=== PATIENT | male | born 1965 | race Caucasian/White ===

== ENCOUNTER 2018-03-01 05:39 | Inpatient (IN) | payer OTHER ==
[~2018-03-01] VITALS: Ht 188 cm; Wt 104.3 kg
[2018-03-01] MEDS ORDERED: oxyCODONE HCL SR 10MG TAB.SR.12H PO ONE (05:40)
[2018-03-01] MEDS ORDERED: ACETAMINOPHEN ES 500 MG TABLET ONE (05:40)
[2018-03-01] MEDS ORDERED: METOCLOPRAMIDE HCL 10 MG/2 ML VIAL ONE (05:40)
[2018-03-01] MEDS ORDERED: CELECOXIB 100 MG CAPSULE ONE (05:40)
[2018-03-01] MEDS ORDERED: BUPIVACAINE 0.75% DEXT-PF 2 ML AMPUL ONE (06:39)
[2018-03-01] MEDS ORDERED: BACITRACIN 50000 UNITS/VIAL ONE (06:40)
[2018-03-01] MEDS ORDERED: ANESTHESIA TRAY IN PYXIS 1 EA TRAY MC ONE (06:40)
[2018-03-01] MEDS ORDERED: BUPIVACAINE MPF 0.75% 30 ML VIAL ONE ×2 (06:40→06:57)
[2018-03-01] MEDS ORDERED: KETOROLAC TROMETHAMINE INJ 30 MG/ML VIAL ONE ×2 (06:40→10:21)
[2018-03-01] MEDS ORDERED: EPINEPHRINE (1:1000) 1 MG/ML AMPUL ONE (06:51)
[2018-03-01] MEDS ORDERED: MIDAZOLAM HCL 2 MG/2ML VIAL ONE (06:57)
[2018-03-01] MEDS ORDERED: HYDROMORPHONE INJ 2 MG/ML DISP.SYRIN ONE (06:57)
[2018-03-01] MEDS ORDERED: TRANEXAMIC ACID 1,500 MG in IV NS 0.9% 50 ML IV ONE (07:30)
[2018-03-01] MEDS ORDERED: MORPHINE SULFATE INJ 4 MG/ML DISP.SYRIN ONE (07:40)
[2018-03-01] MEDS ORDERED: KETOROLAC TROMETHAMINE INJ 30 MG/ML VIAL IV SCH (10:29)
[2018-03-01] MEDS ORDERED: CELECOXIB 100 MG CAPSULE PO SCH (10:29)
[2018-03-01] MEDS ORDERED: ONDANSETRON HCL/PF 4 MG/2 ML VIAL IVP PRN (10:30)
[2018-03-01] MEDS ORDERED: HYDROCODONE/APAP 5/325MG 1 EACH TABLET PO PRN (10:30)
[2018-03-01] MEDS ORDERED: ASPIRIN 600 MG/SUPP.RECT RC ONE (10:30)
[2018-03-01] MEDS ORDERED: oxyCODONE IR immediate release 5 MG ONE (10:30)
[2018-03-01] MEDS ORDERED: HYDROCODONE/APAP 5/325MG 1 EACH TABLET PO SCH (10:38)
[2018-03-01 10:55] VITALS: BP 118/67
--- NOTE | 2018-03-01 10:55 | NUR ---
RN NOTES PATIENT RECEIVED FROM OR, A/O X3 DX OF TOTAL LEFT KNEE REPLACEMENT WITH BRACE ON, GET VERBAL RESEARCH NURSE REPORT ADMINISTERED AM MEDICATION BUT FORGET TO SCAN IT, RN ALSO FAXED MD ORDER TO THE PHARMACY. V/S TAKEN BP- 118/67, R-18, T-98.0, O2- 2L NC, P-79. PATIENT REFUSED PAIN AT THIS TIME. F/C DRAIN LIGHT YELLOW OUTPUT. IN ACCESS INTACT. MD ORDERS TAKEN AND CARRIED OUT. APPLIED ICE ON LEFT LEG, KEEP FOOTS UP USING PILLOWS. CALL LIGHT WITHIN TO REACH, SAFETY PRECAUTION MAINTAINED ALL THE TIME.
[2018-03-01] MEDS ORDERED: DOCUSATE SODIUM 100 MG CAPSULE PO PRN (11:00)
[2018-03-01] MEDS ORDERED: BISACODYL SUPP (10 MG) 10 MG/SUPP.RECT SUPP.RECT RC PRN (11:00)
[2018-03-01] MEDS ORDERED: HYDROMORPHONE 1 MG/1 ML DISP.SYRIN IV PRN (11:00)
[2018-03-01] MEDS ORDERED: ZOLPIDEM TARTRATE 5 MG TABLET PO PRN (11:00)
[2018-03-01 11:30] VITALS: BP 119/95
[2018-03-01] MEDS ORDERED: MAGNESIUM HYDROXIDE 30 ML UDC PO PRN (11:30)
[2018-03-01] MEDS ORDERED: HYDROMORPHONE MDV 2 MG/ML VIAL IV PRN (11:30)
[2018-03-01 12:00] VITALS: BP 113/85
[2018-03-01] MEDS: HYDROMORPHONE INJ 2 MG/ML DISP.SYRIN IV PRN ×2 (13:09→20:29)
[2018-03-01] MEDS: ONDANSETRON HCL/PF 4 MG/2 ML VIAL IVP SCH ×3 (13:09→16:53)
--- NOTE | 2018-03-01 13:09 | NUR ---
RN NOTES ADMINISTERED DILAUDID 1 MG /ML IV PUSH PER PATIENT REQUEST FOR PAIN LEFT KNEE PAIN LEVEL 8/10, ALSO ADMINISTERED ZOFRAIN 4 MG/ML IV PUSH FOR NAUSEA, V/S TAKEN BP 121/ 80, P-83, CONTINUED MONITORING. ENCOURAGED PATIENT TO TAKE A DEEP BREATH, CHECKED CIRCULATION,, MOTION, AND SENSATION Q2 HR X3 PRESCRIBED, CALL LIGHT WITHIN TO REACH, SAFETY PRECAUTION MAINTAINED ALL THE TIME. ASSIST TURN AND REPOSITION Q 2 HR.
[2018-03-01] MEDS: IV D5/0.45 NACL 1,000 ML IV PRN (13:23)
--- NOTE | 2018-03-01 15:00 | NUR ---
RN NOTES PATIENT STABLE, SCHEDULED MEDICATION ADMINISTERED, V/S STABLE CHECKED CIRCULATION, MOTION, AND SENSATION Q 2 HR PRESCRIBED, CALL LIGHT WITHIN TO REACH, ASSIST TURN AND REPOSTION Q 2 HR. INFUSING D5 0.45 NS AT 75 ML/HR INTACT, CONTINUED MONITORING.
[2018-03-01] MEDS: HYDROCODONE/APAP 5/325MG 1 EACH TABLET PO SCH ×3 (15:35→23:00)
[2018-03-01] MEDS: ANCEF 1 GM/50 ML D5W IV SCH ×4 (15:35→23:22)
[2018-03-01 16:00] VITALS: BP 130/74
[2018-03-01] MEDS: CELECOXIB 100 MG CAPSULE PO SCH (17:20)
[2018-03-01] MEDS: KETOROLAC TROMETHAMINE INJ 30 MG/ML VIAL IV SCH ×2 (17:27→23:23)
[2018-03-01] MEDS ORDERED: oxyCODONE/APAP (5/325 MG) 1 UDTAB TABLET PO PRN (18:30)
[2018-03-01] MEDS ORDERED: ONDANSETRON HCL/PF 4 MG/2 ML VIAL IV PRN (18:30)
--- NOTE | 2018-03-01 18:37 | NUR ---
RN NOTES PATIENT SEEN BY OT PATIENT GET OUT OF BED. SCHEDULED MEDICATION ADMINISTERED, V/S STABLE, PATIENT TOLERATED DINNER WELL, NO C/O N/V AT THIS TIME. F/C DRAIN LIGHT YELLOW OUTPUT. MEDICATION WERE ADMINISTERED FOR PAIN EFFECTIVE. CALL LIGHT WITHIN TO REACH, NEXT TO THE BED, CONTINUED MONITORING. ENDORSED ONCOMING NURSE FOR PLAN OF CARE.
--- NOTE | 2018-03-01 19:30 | NUR ---
MS RN OPENING NOTES PATIENT RECEIVED RESTING IN BED, A/O X 4 WITH DX OF TOTAL LEFT KNEE REPLACEMENT. NO SOB, NO ACUTE DISTRESS NOTED. ON O2 2 LPM, BUT DOES NOT WANT TO USE IT, STATED HE IS BREATHING FINE & SATTING 94 % @ RA. PATIENT HAS MILD PAIN TO R KNEE AT THIS TIME, WOULD LIKE TO WAIT FOR A WHILE TO GET PAIN MED. F/C DRAINING LIGHT YELLOW OUTPUT. IV ACCESS INTACT PATENT TO LEFT FA WITH IVF RUNNING ORDERED. CALL LIGHT WITHIN EASY REACH. SAFETY PRECAUTIONS IN PLACE. @ BED SIDE. WILL CONTINUE TO MONITOR CLOSELY.
[2018-03-01 20:00] VITALS: BP 129/80
[2018-03-01] MEDS: ONDANSETRON HCL/PF 4 MG/2 ML VIAL IV PRN (20:19)
--- NOTE | 2018-03-01 20:19 | NUR ---
prn zofran given pt verbalized nausea, no vomiting noted. pt asked to get nausea medicine, prn nausea medicine given as ordered. will reassess for effectiveness.
--- NOTE | 2018-03-01 20:29 | NUR ---
prn Dilaudid given pt c/o right knee pain 03/01, prn Dilaudid given as ordered, pt refuses to take norco po since it causes nausea & stomach upset, per pt. will reassess for effectiveness.
[2018-03-01 22:00] VITALS: BP 125/74
--- NOTE | 2018-03-01 22:00 | NUR ---
RN NOTES PATIENT STABLE, SCHEDULED MEDICATION ADMINISTERED, V/S STABLE. CHECKED CIRCULATION, MOTION, AND SENSATION Q 4 HR ORDERED, CALL LIGHT WITHIN TO REACH, ASSIST TURN AND REPOSITION Q 2 HR. CONTINUED MONITORING.
--- NOTE | 2018-03-01 23:29 | NUR ---
PT REFUSED NORCO PT REFUSED TO TAKE NORCO, VERBALIZES THAT IT CAUSES NAUSEA/UPSET STOMACH. PT ONLY PREFERS TO TAKE IV PAIN MEDS.
[2018-03-02] MEDS: HYDROMORPHONE INJ 2 MG/ML DISP.SYRIN IV PRN ×3 (00:45→21:40)
--- NOTE | 2018-03-02 00:45 | NUR ---
prn Dilaudid given pt c/o right knee pain 04/01, prn Dilaudid given as ordered, pt stated that Dilaudid is more effective than toradol inj, which was given to the pt earlier as scheduled. will reassess for effectiveness of Dilaudid.
--- NOTE | 2018-03-02 02:00 | NUR ---
RN NOTES CHECKED CIRCULATION, MOTION, AND SENSATION Q 4 HR ORDERED, CALL LIGHT WITHIN TO REACH, ASSIST TURN AND REPOSITION Q 2 HR. CONTINUED MONITORING.
[2018-03-02] MEDS: HYDROCODONE/APAP 5/325MG 1 EACH TABLET PO SCH ×5 (03:00→20:06)
[2018-03-02] MEDS: IV D5/0.45 NACL 1,000 ML IV PRN ×2 (04:26→20:27)
[2018-03-02] MEDS: KETOROLAC TROMETHAMINE INJ 30 MG/ML VIAL IV SCH ×4 (05:37→22:34)
[2018-03-02] MEDS: ONDANSETRON HCL/PF 4 MG/2 ML VIAL IV PRN ×3 (05:38→18:45)
--- NOTE | 2018-03-02 06:41 | NUR ---
RN NOTES PATIENT IN BED ASLEEP, EASILY AROUSABLE. RESPIRATIONS EVEN. NO SIGNS OF PAIN AT THIS TIME. DUE MED GOVEN WITH NO ASE NOTED. NEEDS ATTENDED. SAFETY PRECAUTIONS AND COMFORT MEASURES IN PLACE. WILL GIVE REPORT TO DAY SHIFT FOR CONTINUITY OF CARE.
--- NOTE | 2018-03-02 07:07 | NUR ---
MS RN OPENING NOTE RECEIVED BEDSIDE SBAR REPORT ON THE PATIENT. PATIENT IS A/O X3, ASLEEP, EASILY AWAKEN. AT THE BEDSIDE. PATIENT IS IN BED. BED IS LOCKED IN LOWEST POSITION, SIDE RAILS UP X2, BED ALARM IS ON. DENIES PAIN/DISCOMFORT T THIS TIME. PATIENT'S CHEST RISING EQUALLY/BILATERALLY. ALL NEEDS ARE MET. CALL LIGHT WITHIN REACH. EDUCATED THE PATIENT/FAMILY TO USE THE CALL LIGHT TO CALL FOR ASSISTANCE AND PATIENT/FAMILY VERBALIZED UNDERSTANDING. WILL CONTINUE TO ASSESS/MONITOR THROUGHOUT THE SHIFT.
[2018-03-02 07:34] LABS: CALCIUM, SERUM 7.7 mg/dL (8.5-10.1); CREATININE 0.8 mg/dL (0.6-1.3); POTASSIUM 3.6 mmol/L (3.5-5.1)
[2018-03-02 07:45] LABS: BASOPHILS % (AUTO) 0.1 % (0.0-2.0); EOSINOPHILS % (AUTO) 0.1 % (0.0-6.0); HEMATOCRIT 37 % (39-51); HEMOGLOBIN 12.3 g/dL (13.5-17.5); LYMPHOCYTES # (AUTO) 1.1 /CMM (0.8-4.8); LYMPHOCYTES % (AUTO) 17.6 % (20.0-44.0); MEAN CORPUSCULAR HEMOGLOBIN 32 PG (26.0-33.0); MEAN CORPUSCULAR HGB CONC 34 g/dl (31.0-36.0); MEAN CORPUSCULAR VOLUME 94 fL (80-96); MONOCYTES # (AUTO) 0.7 /CMM (0.1-1.30); MONOCYTES % (AUTO) 11.7 % (2.0-12.0); NEUTROPHILS # (AUTO) 4.2 /CMM (1.8-8.9); NEUTROPHILS % (AUTO) 70.5 % (43.0-81.0); PLATELET COUNT (AUTO) 192 /CMM (150-450); RDW COEFFICIENT OF VARIATION 12.4 (11.5-15.0); RED BLOOD CELL COUNT(AUTO) 3.89 MIL/uL (4.5-6.0)
[2018-03-02 08:00] VITALS: BP 115/72
[2018-03-02] MEDS: CELECOXIB 100 MG CAPSULE PO SCH ×2 (09:50→16:27)
[2018-03-02] MEDS: ASPIRIN 325 MG TABLET PO SCH ×2 (09:51→16:27)
--- NOTE | 2018-03-02 09:53 | NUR ---
DRESSING CHARGE COMPLETED BY THE MD AT THE BEDSIDE. PER MD DISCONTINUE THE VARGAS CATHETER. PATIENT COMPLAINED OF PAIN CAUSED BY THE DRESSING CHANGE AND REQUESTED A BREAK THROUGH PAIN MEDICATION. DILAUDID ADMINISTERED PRESCRIBED.
[2018-03-02 10:00] VITALS: BP 115/72
[2018-03-02] MEDS: PANTOPRAZOLE 40 MG TABLET.DR PO SCH (11:31)
--- NOTE | 2018-03-02 11:33 | NUR ---
PATIENT REPORTED OF NASUEA. ZOFRAN ADMINISTERED PRESCRIBED
[2018-03-02 16:00] VITALS: BP 118/72
--- NOTE | 2018-03-02 16:04 | NUR ---
ENDORSED TO THANH ELLIS FOR DELILAH.
--- NOTE | 2018-03-02 18:38 | NUR ---
TIRE SPECIALIST END NOTES PATIENT RESTING IN BED, NO SIGNS OF DISTRESS, NO CO OF PAIN AT THIS TIME, FAMILY AT BEDSIDE, WILL ENDORSE TO RADIO COMMUNICATIONS SUPERINTENDENT FOR CONTINUITY OF CARE.
--- NOTE | 2018-03-02 19:20 | NUR ---
RN OPENING NOTES RECEIVED PT IN BED, SPOUSE AT BEDSIDE, ALERT AND ORIENTED X 4, NO SOB, BREATHING EVEN AND UNLABORED, IN NO ACUTE DISTRESS AT THIS TIME, IMMOBILIZER IN PLACE ON RIGHT KNEE, CHECKED EXTREMITY WITH GOOD CIRCULATION, WITH SENSATION AND ABLE TO MOVE FOOT. ALL PATIENT'S NEEDS ATTENDED TO. PLACED CALL LIGHT WITHIN EASY REACH. WILL CONTINUE TO MONITOR. PLACED BED IN LOW POSITION AND LOCKED IN PLACE.
[2018-03-02 20:00] VITALS: BP 115/71
[2018-03-02 22:00] VITALS: BP 118/75
[2018-03-03] MEDS: HYDROCODONE/APAP 5/325MG 1 EACH TABLET PO SCH ×6 (00:06→14:30)
[2018-03-03] MEDS: ONDANSETRON HCL/PF 4 MG/2 ML VIAL IV PRN (00:47)
[2018-03-03] MEDS: KETOROLAC TROMETHAMINE INJ 30 MG/ML VIAL IV SCH ×2 (04:50→12:00)
--- NOTE | 2018-03-03 06:31 | NUR ---
RN CLOSING NOTES PATIENT IN BED, ALERT AND ORIENTED X 4, AT BEDSIDE. PT SLEPT INTERMITTENTLY THROUGHOUT THE SHIFT, NO SOB, BREATHING EVEN AND UNLABORED IN ROOM AIR AND IS IN NO ACUTE DISTRESS. RIGHT LOWER EXTREMITY WITH GOOD CIRCULATION, MOTION AND SENSATION, IMMOBILIZER IN PLACE. ALL PATIENT'S NEEDS ATTENDED TO. CALL LIGHT WITHIN EASY REACH. WILL ENDORSE TO AM SHIFT NURSE FOR CONTINUITY OF CARE.
[2018-03-03] MEDS: PANTOPRAZOLE 40 MG TABLET.DR PO SCH (06:55)
--- NOTE | 2018-03-03 07:58 | NUR ---
MS RN NOTES PATIENT RECEIVED RESTING INSIDE ROOM, AT BEDSIDE. PATIENT AWAKE, ALERT AND ORIENTED. VERBALLY RESPONSIVE AND RESPONDS TO VERBAL AND TACTILE STIMULI. BREATHING EVEN AND UNLABORED. NO SOB OR ACUTE DISTRESS NOTED. NO CHANGES IN LOC NOTED AT THIS TIME. PATIENT AFEBRILE, SKIN DRY AND WARM TO TOUCH. IV INTACT AND PATENT. WILL CONTINUE TO MONITOR. BED LOCKED AND IN LOW POSITION. BILATERAL UPPER SIDE RAILS UP AND LOCKED. CALL LIGHT WITHIN EASY REACH
[2018-03-03 08:00] VITALS: BP 116/67
[2018-03-03] MEDS: CELECOXIB 100 MG CAPSULE PO SCH (08:15)
[2018-03-03] MEDS: ASPIRIN 325 MG TABLET PO SCH (08:15)
[2018-03-03 10:00] VITALS: BP 116/67
[2018-03-03 14:30] VITALS: BP 121/70
--- NOTE | 2018-03-03 15:27 | NUR ---
MS RN NOTES PATIENT SEEN AND EXAMINED BY ANTOINETTE LOCKWOOD WITH ORDER FOR PATIENT TO DISCHARGE HOME. ORDER NOTED AND CARRIED OUT. DISCHARGE INSTRUCTIONS AND EDUCATION GIVEN TO PATIENT AND VERBALIZED UNDERSTANDING. ALL BELONGINGS COMPLETE UPON DISCHARGE, NO REPORT OF MISSING INVENTORY. IV REMOVED WITH MINIMAL BLEEDING NOTED, PRESSURE DRESSING APPLIED TO SITE. PATIENT LEFT UNIT AT 1520 IN STABLE CONDITION. BREATHING EVEN AND UNLABORED. NO SOB OR ACUTE DISTRESS. NO CHANGES IN LOC NOTED. RLE IMMOBILIZER IN PLACE. BED SIDE COMMODE GIVEN TO PATIENT ORDERED AND CLEARED BY ANTOINETTE LOCKWOOD QA CONSULTANT. PATIENT ACCOMPANIED TO PARKING LOT. LEFT HOSPITAL BY PRIVATE CAR, DRIVEN BY . AWARE OF DISCHARGE.
== END 2018-03-03 15:30 | disposition home or self-care (01) | DRG 470 ==
LOC: DS 05:39 → MED 11:55
PROVIDERS: ADMIT Orthopaedic Surgery; ATTEND Orthopaedic Surgery
PROC: 0SRC0J9 Replacement of Right Knee Joint with Synthetic Substitute, Cemented, Open Approach (ICD-10-PCS; principal; 2018-03-01 07:00)
DX: M17.11 Unilateral primary osteoarthritis, right knee (principal); M19.90 Unspecified osteoarthritis, unspecified site; D64.9 Anemia, unspecified; E66.9 Obesity, unspecified; G43.909 Migraine, unspecified, not intractable, without status migrainosus; Z68.29 Body mass index [BMI] 29.0-29.9, adult
CPT/HCPCS: 36415; 73564-TC; 80048-TC; 85025-TC; 86850-TC; 86921-TC; 87081-TC; 88305-TC; 88311-TC; 97110-TC; 97116-TC; 97530-TC; 97760-TC; A4216; A4217; A6402; C1713; J0171; J0690; J1100; J1170; J1885; J2250; J2270; J2405; J2704; J2765; J3490; J7060; L1830